=== PATIENT | male | born 1955 | race Caucasian/White ===

== ENCOUNTER 2025-01-19 17:38 | Emergency (ER) | payer MEDICARE, SELFPAY ==
--- NOTE | ~2025-01-19 | CT_ITS ---
CLINICAL HISTORY: Generalized abdominal pain CT abdomen and pelvis with contrast Comparison: None Findings: Bilateral lower lobe subsegmental atelectasis. No acute bony abnormalities. Fatty infiltration of the liver without focal abnormality. Pancreas, Spleen and adrenal glands unremarkable. Gallbladder is within normal limits. No significant focal renal abnormalities. Tiny renal cyst, no stones or hydronephrosis. Abdominal aorta is normal in caliber. No free fluid or adenopathy in the pelvis. No diverticulitis. Appendix unremarkable. Impression: No acute process This document has been electronically signed by: Howard Londono MD on 01/19/2025 21:10:31
[2025-01-19 17:52] VITALS: BP 124/85; PULSE 66; RESP 18; TEMP 36.1; O2SAT 98; BMI 25.1
--- NOTE | 2025-01-19 17:52 | ED.NAVMDI ---
HPI - Nausea/Vomiting/Diarrhea General Chief complaint: Nausea/Vomiting/Diarrhea Stated complaint: vomiting, ?food poisoning Time Seen by Provider: 01/19/25 20:07 Source: patient Mode of arrival: ambulatory Limitations: no limitations History of Present Illness ED Provider: Lucho Adorno HPI Narrative: [age] year old male with no past medical history presents to ED for abdominal pain since 02:00 with nausea and vomiting. Patient patient denies any diarrhea. Patient denies any fever or chills or genitourinary symptoms. Patient states symptoms might be due to cod he ate last night. Patient states he ate cod at a restaurant and no one else ate the cod. He states he the only one that is symptomatic. Patient denies any new antibiotics, recent hospital admissions, or recent travel outsdie the country. Related Data Previous Rx's ?Medication ?Instructions ?Recorded naproxen 500 mg tablet 500 mg PO BID PRN pain #14 tabs 01/20/25 Allergies Allergy/AdvReac Type Severity Reaction Status Date / Time No Known Allergies Allergy Verified 01/19/25 17:52 Review of Systems Review of Systems: Abdominal pain nausea vomiting Yes all other systems are reviewed and are negative [facility] Social History Social History Substance Use Type: Marijuana Physical Exam Vital Signs: Vital Signs: Last Vital Signs Temp 98.7 F 01/20/25 01:44 Pulse 65 01/20/25 01:44 Resp 16 01/20/25 01:44 BP 140/67 H 01/20/25 01:44 Pulse Ox 97 01/20/25 01:44 O2 Del Method Room Air 01/20/25 01:44 BMI result Body Mass Index 25.1 Const: General: cooperative, healthy appearing, comfortable, no acute distress, well developed, alert, awake and Physically active Orientation/consciousness: patient oriented x3 HEENT: Head: Yes normal to inspection, Yes No palpable skull fracture present, Yes normocephalic and Yes atraumatic Eyes: General: appearance normal, both eyes and all related structures Neck: Neck: Yes normal visual inspection, Yes full ROM, Yes no lymphadenopathy, Yes no meningeal signs, Yes trachea midline, Yes supple, No anterior neck swelling and No tender Chest: Chest palpation & inspection: normal inspection of the chest and normal palpation of entire chest wall Resp: Effort & Inspection: normal respiratory effort and able to speak in complete sentences Auscultation: clear to auscultation bilaterally Cardio: Jugular venous distension: no JVD Heart sounds: S1 normal heart sound present and S2 normal heart sound present GI: Inspection: Yes normal to inspection Palpation (GI): Soft to palpation, not firm, nontender, no guarding and not rigid : General: Yes no CVA tenderness Back/Spine/Pelvis: Back: no CVA tenderness and No back tenderness Skin: General skin exam: no rashes or lesions noted, elasticity normal and turgor normal Neuro: General: patient oriented x3, gait normal, tone normal, moves all extremities, Normal light touch and pain sensation, no meningeal signs, no focal motor deficits, CN's II-XI intact bilaterally and normal sensation to monofilament Extrem: General: Yes normal to inspection, Yes full ROM and Yes capillary refill normal Psych: Appearance: grossly normal, well kempt and not disheveled Course Course Course Narrative: This is an RME performed by Abbi Rosado CONCRETE POINTER: Additional HPI, ROS, PE not included below will be deferred to primary provider. Patient is a 69-year-old male who presents emergency department for evaluation, he reports having when out to eat last night, consumed cod. Since 02:00 this morning he has been having stomach upset, vomiting. Not really tolerating much oral intake today, states within 1 hour after eating or drinking he begins vomiting. Plan: Serum labs, viral serologies Medications Administered Discontinued Medications Generic Name Dose Route Start Last Admin Trade Name Freq PRN Reason Stop Dose Admin Al Hydroxide/Mg Hydroxide 30 ml 01/19/25 21:16 01/19/25 21:22 Magnesium Hydrox/Alum Hydrox 30 Ml Oral.Susp PO 01/19/25 21:17 30 ml ONCE ONE Administration Belladonna Alkaloids/Phenobarbital 10 ml 01/19/25 21:16 01/19/25 21:21 Phenobarb/Hyoscy/Atropine/Scop 10 Ml Elixir PO 01/19/25 21:17 10 ml ONCE ONE Administration Famotidine 20 mg 01/19/25 20:16 01/19/25 20:25 Famotidine/Pf 20 Mg/2 Ml Vial IVPUSH 01/19/25 20:17 20 mg ONCE ONE Administration Sodium Chloride 1,000 mls @ 999 mls/hr 01/19/25 20:16 01/19/25 21:55 Ns IV 01/19/25 21:16 Infused .Q1H1M STA Infusion Iohexol 100 ml 01/19/25 20:39 01/19/25 20:40 Iohexol 350 Mg/Ml 100 Ml Infus..Btl IV 01/19/25 20:40 85 ml ONCE ONE Administration Ketorolac Tromethamine 30 mg 01/20/25 00:07 01/20/25 00:22 Ketorolac Tromethamine 30 Mg/Ml Vial IVPUSH 01/20/25 00:08 30 mg ONCE ONE Administration Lidocaine HCl 15 ml 01/19/25 21:16 01/19/25 21:22 Lidocaine Hcl Viscous 2 % 15 Ml Solution MUCOUS MEM 01/19/25 21:17 15 ml ONCE ONE Administration Ondansetron HCl 4 mg 01/19/25 20:08 01/19/25 20:16 Ondansetron Hcl 4 Mg/2 Ml Vial IVPUSH 01/19/25 20:09 4 mg ONCE ONE Administration Medical Decision Making Medical Decision Making [facility] Narrative: 69-year-old male presents to the ED for abdominal pain nausea vomiting since 02:00. Patient states symptoms due to being caused from restaurant. Patient denies any genitourinary symptoms. Abdomen negative for any tenderness but due to patient having white count [id number] with belly pain we will do EKG troponin and cat scan of the abdomen. Pepcid Zofran fluids ordered. 1:26am: Patient's abdominal CT scan came back normal and negative for any acute processes. Labs came back reassuring. . Troponins negative. SARs COVID influenza negative. Patient did not have any diarrhea during ED visit. Patient admits complaint abdominal pain nausea vomiting. Patient has elevated blood pressure most likely due to pain patient states no history of hypertension, but patient informed to keep record of high blood pressure to show primary care provider. Patient is comfortable and feels better. Patient educated on brat diet. Patient explained worrisome signs and informed to return to the ED immediately. Not suspecting aortic dissection, triple AAA, mesenteric ischemia, pancreatitis, cholecysitis, or any other life threatening eitology. Differential Diagnosis Differential Diagnoses: The differential diagnosis associated with the presentation includes (Pancreatitis, cholecystitis, MS) Admission/Observation Consideration of admission/observation: Escalation of care including admission/observation considered Lab Data [facility] Lab Attestation statement: I reviewed the patient's lab results. 01/19/25 18:27 01/19/25 22:40 Labs: Lab Results 01/19/25 01/19/25 01/19/25 Range/Units 18:27 22:40 22:50 WBC 16.3 H (4.8-10.8) X10*3/uL RBC 5.41 (4.60-5.80) X10*6/uL Hgb 15.9 (14.0-18.0) g/dl Hct 46.9 (42.0-52.0) % MCV 86.7 (80.0-98.0) fL MCH 29.4 (27.0-33.0) pg MCHC 33.9 (31.0-36.0) g/dl RDW 13.5 (11.0-16.0) % Plt Count 371 (160-400) X10*3/uL MPV 10.3 (9.4-12.4) fL Immature Gran % (Auto) 0.4 (0.0-0.4) % Neut % (Auto) 89.7 H (45-73) % Lymph % (Auto) 7.2 L (20-40) % [place] % (Auto) 2.5 (2-11) % Eos % (Auto) 0.0 (0-4) % Baso % (Auto) 0.2 (0-2) % Lymph # (Auto) 1.2 (1.2-4.9) X10*3/uL [place] # (Auto) 0.4 (0.1-1.2) X10*3/uL Eos # (Auto) 0.0 (0.0-0.4) X10*3/uL Baso # (Auto) 0.0 (0.0-0.2) X10*3/uL Abs Immat Gran (auto) 0.06 H (0.00-0.03) X10*3/uL Absolute Neuts (auto) 14.6 H (2.0-8.3) x10*3/uL Absolute Nucleated RBC 0.000 (0.0-0.012) X10*3/uL Nucleated RBC % (auto) 0.0 (0.0-0.2) /100WBC Sodium 142 140 (135-145) mmol/L Potassium 4.1 4.1 (3.3-5.1) mmol/L Chloride 103 104 (96-108) mmol/L Carbon Dioxide 21 L 24 (22-29) mmol/L Anion Gap 22 H 16 (12-20) BUN 17 H 15 (9-16) mg/dL Creatinine 0.95 0.81 (0.5-1.4) mg/dL Estim Creat Clear Calc 84.1 98.6 Estimated GFR > 60 > 60 Random Glucose 149 H 138 H (60-115) mg/dL Calcium 9.5 8.8 D (8.4-10.2) mg/dL Total Bilirubin 0.8 0.6 (0.0-1.0) mg/dL AST 29 23 (5-37) U/L ALT 45 H 35 (0-40) U/L Alkaline Phosphatase 50 44 (39-117) U/L Troponin I High Sens 4.6 12.0 D (<3.5-35.0) ng/L Total Protein 7.9 6.7 (6.5-8.0) g/dL Albumin 5.1 H 4.4 (3.5-5.0) g/dL Lipase 18 (8-78) U/L Urine Color Yellow Urine Appearance Clear Urine pH 6.0 (5.0-9.0) Ur Specific [place] >= 1.030 H (1.005-1.025) Urine Protein Trace (Neg-Trace) mg/dL Urine Glucose (UA) Negative (Negative) mg/dL Urine Ketones 15 (Negative) mg/dL Urine Blood Negative (Negative) Urine Nitrite Negative (Negative) Ur Leukocyte Esterase Negative (Negative) Influenza Type A (PCR) NEGATIVE (Negative) Influenza Type B (PCR) NEGATIVE (Negative) RSV RNA Qual (PCR) NEGATIVE (Negative) SARS-CoV-2 RNA (RT-PCR) NEGATIVE (Negative) 01/20/25 Range/Units 00:40 WBC (4.8-10.8) X10*3/uL RBC (4.60-5.80) X10*6/uL Hgb (14.0-18.0) g/dl Hct (42.0-52.0) % MCV (80.0-98.0) fL MCH (27.0-33.0) pg MCHC (31.0-36.0) g/dl RDW (11.0-16.0) % Plt Count (160-400) X10*3/uL MPV (9.4-12.4) fL Immature Gran % (Auto) (0.0-0.4) % Neut % (Auto) (45-73) % Lymph % (Auto) (20-40) % [place] % (Auto) (2-11) % Eos % (Auto) (0-4) % Baso % (Auto) (0-2) % Lymph # (Auto) (1.2-4.9) X10*3/uL [place] # (Auto) (0.1-1.2) X10*3/uL Eos # (Auto) (0.0-0.4) X10*3/uL Baso # (Auto) (0.0-0.2) X10*3/uL Abs Immat Gran (auto) (0.00-0.03) X10*3/uL Absolute Neuts (auto) (2.0-8.3) x10*3/uL Absolute Nucleated RBC (0.0-0.012) X10*3/uL Nucleated RBC % (auto) (0.0-0.2) /100WBC Sodium (135-145) mmol/L Potassium (3.3-5.1) mmol/L Chloride (96-108) mmol/L Carbon Dioxide (22-29) mmol/L Anion Gap (12-20) BUN (9-16) mg/dL Creatinine (0.5-1.4) mg/dL Estim Creat Clear Calc Estimated GFR Random Glucose (60-115) mg/dL Calcium (8.4-10.2) mg/dL Total Bilirubin (0.0-1.0) mg/dL AST (5-37) U/L ALT (0-40) U/L Alkaline Phosphatase (39-117) U/L Troponin I High Sens 13.7 (<3.5-35.0) ng/L Total Protein (6.5-8.0) g/dL Albumin (3.5-5.0) g/dL Lipase (8-78) U/L Urine Color Urine Appearance Urine pH (5.0-9.0) Ur Specific [place] (1.005-1.025) Urine Protein (Neg-Trace) mg/dL Urine Glucose (UA) (Negative) mg/dL Urine Ketones (Negative) mg/dL Urine Blood (Negative) Urine Nitrite (Negative) Ur Leukocyte Esterase (Negative) Influenza Type A (PCR) (Negative) Influenza Type B (PCR) (Negative) RSV RNA Qual (PCR) (Negative) SARS-CoV-2 RNA (RT-PCR) (Negative) Independent Interpretation I performed an independent interpretation of an: EKG (NOrmal Sinus rhythm. negative STEMI) Independent Historian Clinical information obtained from an independent historian. History obtained from or confirmed by: Other (patinet) Discharge Plan Discharge Clinical Impression: Gastroenteritis, Abdominal pain Patient Disposition: Home, Self-Care Instructions: Gastroenteritis (ED), Abdominal Pain (ED) Additional Instructions: Your lab work EKG and abdominal CT scan came back reassuring. Recommend follow up with your primary care provider. Your blood pressure was elevated during ED which could be caused by the pain, but recommend keeping a record of your blood pressure at least twice a day and show your primary care provider. Return to the ED immediately for any severe abdominal pain, chest pain, shortness of breath, diarrhea, bloody stool, vomiting, bloody urine, testicular pain, pain on urination, or any other concerning symptoms. Recommend brat diet which is banana, rice, applesauce, and toast CT abdomen and pelvis with contrast Comparison: None Findings: Bilateral lower lobe subsegmental atelectasis. No acute bony abnormalities. Fatty infiltration of the liver without focal abnormality. Pancreas, Spleen and adrenal glands unremarkable. Gallbladder is within normal limits. No significant focal renal abnormalities. Tiny renal cyst, no stones or hydronephrosis. Abdominal aorta is normal in caliber. No free fluid or adenopathy in the pelvis. No diverticulitis. Appendix unremarkable. Impression: No acute process This document has been electronically signed by: Howard Londono MD on 01/19/2025 21:10:31 Dictated By: Howard Londono MD Signed By: <Electronically signed by Howard Londono MD in OV> 01/19/252110 Prescriptions: New naproxen 500 mg tablet 500 mg PO BID PRN (Reason: pain) Qty: 14 0RF Interventions: ED Discharge Assessment Last Done: 01/20/25 01:44 Discharge Date/Time: 01/20/25 01:50 Print Language: Bur[place]ian
[2025-01-19 18:37] LABS: MANUAL DIFF FLAG NO
[2025-01-19 18:49] LABS: Basophils Percent Auto 0.2 % (0-2); Hematocrit 46.9 % (42.0-52.0); Hemoglobin 15.9 g/dl (14.0-18.0); Imm Gran Abs Auto 0.06 X10*3/uL (0.00-0.03); Imm Gran Pct Auto 0.4 % (0.0-0.4); Lymphocytes Absolute Auto 1.2 X10*3/uL (1.2-4.9); Lymphocytes Percent Auto 7.2 % (20-40); Mean Corpuscular HGB Conc 33.9 g/dl (31.0-36.0); Mean Corpuscular Hemoglobin 29.4 pg (27.0-33.0); Mean Corpuscular Volume 86.7 fL (80.0-98.0); Mean Platelet Volume 10.3 fL (9.4-12.4); Monocytes Absolute Auto 0.4 X10*3/uL (0.1-1.2); Monocytes Percent Auto 2.5 % (2-11); Neutrophils Absolute Auto 14.6 x10*3/uL (2.0-8.3); Neutrophils Percent Auto 89.7 % (45-73); Platelet Count 371 X10*3/uL (160-400); Red Blood Count 5.41 X10*6/uL (4.60-5.80); Red Cell Distribution Width 13.5 % (11.0-16.0); White Blood Count 16.3 X10*3/uL (4.8-10.8)
[2025-01-19 18:54] LABS: Alanine Aminotransferase 45 U/L (0-40); Albumin Level 5.1 g/dL (3.5-5.0); Alkaline Phosphatase 50 U/L (39-117); Anion Gap 22 (12-20); Aspartate Amino Transferase 29 U/L (5-37); Bilirubin Total 0.8 mg/dL (0.0-1.0); Blood Urea Nitrogen 17 mg/dL (9-16); Calcium 9.5 mg/dL (8.4-10.2); Carbon Dioxide 21 mmol/L (22-29); Chloride 103 mmol/L (96-108); Creatinine Clr Calc Pharmacy 84.1; Estimated Glomerular Filt Rate > 60; Glucose Random 149 mg/dL (60-115); Lipase 18 U/L (8-78); Potassium 4.1 mmol/L (3.3-5.1); Sodium 142 mmol/L (135-145); Total Protein 7.9 g/dL (6.5-8.0)
[2025-01-19 19:15] LABS: Influenza A PCR NEGATIVE (Negative); Influenza B PCR NEGATIVE (Negative); Resp Syncy Virus RNA Qual PCR NEGATIVE (Negative); SARS COV2 PCR INHOUSE NEGATIVE (Negative)
[2025-01-19 20:02] VITALS: BP 192/85; PULSE 75; RESP 16; TEMP 36.8; O2SAT 95
[2025-01-19] MEDS: ondansetron HCL 4 MG/2 ML VIAL IVPUSH (20:16)
--- NOTE | 2025-01-19 20:16 | ECG_ITS ---
Test Reason : ABDOMINAL PAIN Blood Pressure : */* mmHG Vent. Rate : 76 BPM Atrial Rate : 76 BPM P-R Int : 164 ms QRS Dur : 98 ms QT Int : 404 ms P-R-T Axes : 69 4 56 degrees QTcB Int : 454 ms Sinus rhythm with marked sinus arrhythmia Nonspecific ST abnormality Abnormal ECG No previous ECGs available Referred By: Lucho Adorno Electronically Signed By: LISA SWEENEY
[2025-01-19] MEDS: 0.9 % Sodium Chloride 1,000 ML 999 ML IV (20:21)
[2025-01-19] MEDS: Famotidine/PF 20 MG/2 ML VIAL IVPUSH (20:25)
[2025-01-19 20:38] LABS: Troponin-I High Sensitivity 4.6 ng/L (<3.5-35.0)
[2025-01-19] MEDS: iohexoL 350 MG/ML 100 ML INFUS..BTL IV (20:40)
[2025-01-19 20:41] VITALS: BP 143/68
[2025-01-19] MEDS: PHENobarb/Hyoscy/Atropine/Scop 10 ML ELIXIR PO (21:21)
[2025-01-19] MEDS: Magnesium Hydrox/Alum Hydrox 30 ML ORAL.SUSP PO (21:22)
[2025-01-19] MEDS: Lidocaine HCl Viscous 2 % 15 ML SOLUTION MUCOUS MEM (21:22)
[2025-01-19 21:59] VITALS: BP 178/84; PULSE 62; RESP 16; TEMP 37.1; O2SAT 95
[2025-01-19 22:56] LABS: Appearance Urine Clear; Color Urine Yellow; Glucose Urine UA Negative (Negative); Leukocyte Esterase Urine Negative (Negative); Nitrite Urine Negative (Negative); Specific Gravity - Urine >= 1.030 (1.005-1.025); Urine Blood Negative (Negative); Urine Ketones 15 mg/dL (Negative); Urine Protein Trace mg/dL (Neg-Trace)
[2025-01-19 22:59] LABS: Alanine Aminotransferase 35 U/L (0-40); Albumin Level 4.4 g/dL (3.5-5.0); Alkaline Phosphatase 44 U/L (39-117); Anion Gap 16 (12-20); Aspartate Amino Transferase 23 U/L (5-37); Bilirubin Total 0.6 mg/dL (0.0-1.0); Blood Urea Nitrogen 15 mg/dL (9-16); Calcium 8.8 mg/dL (8.4-10.2); Carbon Dioxide 24 mmol/L (22-29); Chloride 104 mmol/L (96-108); Creatinine Clr Calc Pharmacy 98.6; Estimated Glomerular Filt Rate > 60; Glucose Random 138 mg/dL (60-115); Potassium 4.1 mmol/L (3.3-5.1); Sodium 140 mmol/L (135-145); Total Protein 6.7 g/dL (6.5-8.0)
[2025-01-19 23:47] VITALS: BP 188/88; PULSE 73; RESP 16; TEMP 37; O2SAT 97
[2025-01-20] MEDS: Ketorolac Tromethamine 30 MG/ML VIAL IVPUSH (00:22)
[2025-01-20 01:06] LABS: Troponin-I High Sensitivity 13.7 ng/L (<3.5-35.0)
[2025-01-20 01:38] VITALS: BP 140/67; PULSE 65; RESP 16; O2SAT 97
[2025-01-20 01:44] VITALS: BP 140/67; PULSE 65; RESP 16; TEMP 37.1; O2SAT 97
== END 2025-01-20 01:50 | disposition home or self-care (01) ==
PROVIDERS: Nurse Practitioner Family; Physician Assistant; Emergency Provider Emergency Medicine
DX: K52.9 Noninfective gastroenteritis and colitis, unspecified (principal); R10.9 Unspecified abdominal pain; Z03.818 Encounter for observation for suspected exposure to other biological agents ruled out
CPT/HCPCS: 0241U; 36415; 74177; 80053; 81003; 83690; 84484; 85025; 93005; 96361; 96374; 96375; 99284; 99285; J1308; J1885; J2405; Q9967

== ENCOUNTER → 2025-01-19 20:16 | Outpatient (BNV) | payer MEDICARE, SELFPAY | PROVIDERS: Emergency Provider Emergency Medicine; Visit Provider Radiology Diagnostic Radiology | DX: R10.84 Generalized abdominal pain (principal) | CPT/HCPCS: 74177 ==

== ENCOUNTER → 2025-01-19 20:16 | Outpatient (BNV) | payer MEDICARE, SELFPAY | PROVIDERS: Emergency Provider Emergency Medicine; Visit Provider Internal Medicine | DX: I49.9 Cardiac arrhythmia, unspecified (principal) | CPT/HCPCS: 93010 ==